=== PATIENT | male | born 1950 | race Caucasian/White ===

== ENCOUNTER → 2017-02-17 | Outpatient (REF) | payer MEDICARE, OTHER ==
[2017-02-17 18:36] LABS: PERCENT SATURATION 10.1 % (19.7-37.4)
== END ==
LOC: M LAB REF 16:32
PROVIDERS: ATTEND Internal Medicine
DX: D64.9 Anemia, unspecified (principal)

== ENCOUNTER → 2017-04-14 | Outpatient (REF) | payer MEDICARE, OTHER ==
[2017-04-14 20:12] LABS: PERCENT SATURATION 23.8 % (19.7-50.0)
== END ==
LOC: M LAB REF 11:43
PROVIDERS: ATTEND Internal Medicine
DX: D64.9 Anemia, unspecified (principal)